=== PATIENT | female | born 1960 | race Caucasian/White ===

== ENCOUNTER → 2017-02-11 | Outpatient (CLI) | payer MEDICARE ==
[~2017-02-11] MED LIST: ALEVE OTC PRN; ALPRAZOLAM; ASPIRIN325 M1 PO; B COMPLEX VITAMIN; BACTRIM DS TABL1 TA1 PO; BIOTIN OTC; BLOOD PRESSURE; CIPRO PO; CLOPIDOGREL75 MG PO; FLAXSEED OIL1000 M1 PO; IBUPROFEN PO; LISINOPRIL PO; MULTIVITAMIN1 UDCAP; PAXIL PO; PHENERGAN PO; PHENERGAN SUPP25 MG PR; PHENERGAN25 MG PO; TOPROL XL PO; ULTRAM PO; ZANAFLEX PO; ZESTORETIC 20-1 EAC1 PO; ZOCOR PO; ZUPLENZ4 MG; [UNRECOGNIZED DRUG - OTHER]
--- NOTE | ~2017-02-11 | MY11 ---
[facility] A Service [facility] RADIOLOGY TEXT RESULTS PATIENT: DELIA ROY LOCATION: [facility] : 60 UNIT #: [id number] AGE: [address]: Chloé Knott MD SEX: F ORDER DR: [id number] [place] [id number] MR#: [id number] Acc #: [id number] NAME: DELIA ROY : 1960 SEX: F STUDY DATE/TIME: 02/11/2017 10:54 UNIT: [facility] ROOM: STUDY DESCRIPTION: MY Mammogram Screening Dig Levi Attending Physician: Chloé Knott M.D. Referring Physician: Chloé Knott M.D. Ordering Physician: Chloé Knott M.D. Primary Care Physician: Chloé Knott M.D. MEDICAL IMAGING REPORT This report is preliminary unless electronic signature is present. EXAM Digital screening mammogram with CAD. INDICATIONS Routine screening. PROCEDURE Bilateral CC and MLO views obtained on a digital mammography unit, FDA-approved CAD device was utilized. COMPARISON 02/09/2016 FINDINGS Scattered fibroglandular density. No dominant mass. No suspicious calcification. IMPRESSION Negative screening mammogram. Screen interval in 1 year is suggested. Patients over the age of 40 are entered into a reminder system with target due date for the next mammogram. A result letter will also be sent to the patient. BIRADS: 1 Negative. Dictated by... Demian Finch M.D. THIS IS AN ELECTRONICALLY VERIFIED REPORT Demian Finch M.D. at 02/14/2017 7:43 AM [facility] A Service [facility] RADIOLOGY TEXT RESULTS PATIENT: DELIA ROY LOCATION: [facility] : 60 UNIT #: [id number] AGE: [address]: Chloé Knott MD SEX: F ORDER DR: Parag TD: 02/11/2017 16:20 JOB #: [id number] MEDICAL IMAGING REPORT Page 1 of 1
== END | disposition home or self-care (01) ==
LOC: SMAM 09:39
DX: Z12.31 Encounter for screening mammogram for malignant neoplasm of breast (principal)
CPT/HCPCS: G0202